=== PATIENT | female | born 1930 | race Caucasian/White ===

== ENCOUNTER 2016-08-12 10:12 | Observation (INO) | payer MEDICARE, OTHER ==
[~2016-08-12] VITALS: Ht 152.4 cm; Wt 67.7 kg
--- NOTE | ~2016-08-12 | EEP ---
Initial Pacemaker Generator Implant Report Demographics Patient Name RENÉE GARCIA Gender Female Patient Number [id number] Race Visit Number [id number] Ethnicity [employer] ID Room Number 429 Accession Number [id number] Height 165.1 cm Date of 1930 Weight 67.59 kg Age 85 year(s) BSA 1.75 m Referring Physician Sarah Johnson MD BMI 24.79 kg/m Implanting Physician King Lonnie Howard MD Date of Study 08/12/2016 Assisting Physician Performing Physician King Lonnie Howard MD The procedure was explained in detail to the patient. Risks, complications and alternative treatments were reviewed. Written consent was obtained. Medications reviewed with patient prior to procedure. Conclusions Implantable Device Summary Summary Successful Dual Chamber Pacemaker implantation. Recommendations A chest X-ray & EKG should be performed immediately and again in the AM. A wound check should be performed in 7 days. Follow up in 7 days with an [facility] provider. Complications No complications. Procedure Procedure Type Pacemaker:Initial Insertion (generator and leads), Dual Lead PM Insert A&V Leads Indications Syncope and Symptomatic Bradycardia. Procedure Description The patient was brought to the electrophysiology laboratory in a fasting state non sedated state. A baseline ECG was recorded. Informed consent was obtained in the written and verbal form after the risks and benefits were explained. The patient had no further questions and agreed to proceed. A grounding pad was placed on the patient's back. A defibrillator was configured to deliver shocks via self-adhesive anterior posterior defibrillator pads. The planned puncture-incision site(s) were shaved and prepped with ChloraPrep and draped in the usual sterile manner. Conscious sedation, supplemental oxygen, and pain control medications were delivered by a registered nurse under physician guidance. Surface ECG rhythm, blood pressure measurement, and pulse oximetry were monitored throughout the procedure. 2 % Lidocaine with bupivicaine was used in the infraclavicular area and an incision was made. Subclavian access was obtained and guidewires were placed into the SVC. Blunt dissection anterior to the Pectoralis Fascia was used to form the pacemaker pocket. Over one wire, an intravenous sheath and dilator were placed in the superior vena cava under fluoroscopic vision. Through the sheath, the ventricular lead was then placed into the right ventricular apex under fluoroscopic vision and tested. The sheath was removed. The lead was sutured to the Pectoralis fascia using non-absorbable suture. Over the other wire, an intravenous sheath and dilator were placed in to the superior vena cava under fluoroscopic vision. Through the sheath, the atrial lead was then placed in the right atrium under fluoroscopic vision and tested. The sheath was removed. The lead was sutured to the Pectoralis Fascia using non-absorbable sutures. The leads were then connected to the pulse generator and screwed tight. The pocket was irrigated with Normal Saline. The lead(s) and pulse generator were then placed into the pacemaker pocket. The incision was then closed. It was closed using 3-0 Vicryl for the deep and intermediate layer and 4-0 Vicryl for the subcuticular layer. A sterile dressing was applied. The patient tolerated the procedure well and was returned to the nursing unit in stable condition. Devices and Leads Devices + + + +--------+-------+ +--------+ !Identification!Action !Location !Device !Serial !Implant !Comments! ! ! ! !name !# !date ! ! + + + +--------+-------+ +--------+ !Old implant ! !Left ![facility]![id number]!05/02/2015! ! ! ! !Subclavicular!LOOP ! ! ! ! ! ! ! !RECORDER! ! ! ! + + + +--------+-------+ +--------+ !New implant !Implanted !Left ![employer]![id number] !08/12/2016! ! ! ! ! !MRI DR ! ! ! ! ! ! ! !L111 ! ! ! ! + + + +--------+-------+ +--------+ Leads + + +--------+ +------+ +---------+ !Identification!Action !Location!Lead name !Serial!Implant !Comments ! ! ! ! ! !# !date ! ! + + +--------+ +------+ +---------+ !New implant !Implanted !RV !PACER LEAD ![id number]!08/12/2016! ! ! ! !septum !INGEVITY ! ! ! ! ! ! ! !MRI 59 CM ! ! ! ! + + +--------+ +------+ +---------+ !New implant !Implanted !RA !PACER LEAD ![id number]!08/12/2016! ! ! ! !lateral !FINELINE II! ! ! ! ! ! ! !52CM LEAD ! ! ! ! ! ! ! !(POLY) ! ! ! ! + + +--------+ +------+ +---------+ Leads Measured and Programmed Data +--------+---------+ +---------+ +---------+ + +----- --+ !Lead !Sensing Amplitude !Threshold (V) !Pulse Width (ms) !Impendence!Current! ! !(mV) ! ! !(Ohms) !(mA) ! +--------+---------+ +---------+ +---------+ + +----- --+ ! !Measured !Programmed !Measured !Programmed !Measured !Programmed ! ! ! +--------+---------+ +---------+ +---------+ + +----- --+ !RV !4.9 !2 !0.5 !3.5 !0.5 !0.5 !985 !0.6 ! !septum ! ! ! ! ! ! ! ! ! +--------+---------+ +---------+ +---------+ + +----- --+ !RA !1.5 !0.5 !0.9 !3.5 !0.5 !0.5 !319 !2.9 ! !lateral ! ! ! ! ! ! ! ! ! +--------+---------+ +---------+ +---------+ + +----- --+ Device Programming Bradycardia Zone +-------+--------+--------+--------+ + +------+--------+ !Pacing !Mode !Lower !Upper !Paced AV !Sensed AV !PVARP !VRP (ms)! !Mode !Switch !Rate !Rate !Interval !Interval !(ms) ! ! ! ! !(ppm) !(ppm) !(ms) !(ms) ! ! ! +-------+--------+--------+--------+ + +------+--------+ !DDDR !On !60 !130 !240 !210 !320 !250 ! +-------+--------+--------+--------+ + +------+--------+ Medical History Allergies - Other:(Nitrofurantoin). Admission Data Admission Date: 08/12/2016 Admission Time: 13:06 Insurance Payors:Medicare. Hospital Status:Inpatient. Procedure Data Procedure Date:08/12/2016Start:12:50End:14:02 Fluoroscopy Time: 14:06 minutes.Fluoroscopy Dose: 424 mGy. Estimated blood loss:10 ml. Procedure Medications Order and Administration + + +---------+--------+ !Time !Medication !Dosage !Route ! + + +---------+--------+ !08/12/2016 12:27 !Ancef !2 g !I.V. ! + + +---------+--------+ 08/12/2016 12:36 !Versed !2 mg !I.V. ! + + +---------+--------+ 08/12/2016 12:36 !Fentanyl !50 mcg !I.V. ! + + +---------+--------+ !08/12/2016 12:43 !Oxygen !2 l/min !NC ! + + +---------+--------+ !08/12/2016 12:52 !Versed !1 mg !I.V. ! + + +---------+--------+ !08/12/2016 12:52 !Fentanyl !25 mcg !I.V. ! + + +---------+--------+ !08/12/2016 13:01 !Versed !1 mg !I.V. ! + + +---------+--------+ !08/12/2016 13:01 !Fentanyl !25 mcg !I.V. ! + + +---------+--------+ !08/12/2016 13:21 !Versed !1 mg !I.V. ! + + +---------+--------+ !08/12/2016 13:21 !Fentanyl !50 mcg !I.V. ! + + +---------+--------+ !08/12/2016 13:59 !Sodium Chloride !40 ml !I.V. ! + + +---------+--------+ Approach - Incision site: Left infraclavicular.The subclavian vein (stick) was cannulated.The incision was closed using 3-0 Vicryl for the deep and intermediate layers and 4-0 Vicryl for the subcuticular layer. A sterile dressing was applied. Entry Locations - Percutaneous access was performed through the left subclavian vein. A 6 Fr sheath was inserted. Post procedure the sheath was removed and the lead was sutured in place. - Percutaneous access was performed through the left subclavian vein. A 7 Fr sheath was inserted. Discharge Data Discharge Date: 08/13/2016 Signatures
[2016-08-14] MEDS ORDERED: TYLENOL DPS325 MG PO (13:07)
[2016-08-14] MEDS ORDERED: NORVASC5 MG PO (13:07)
[2016-08-14] MEDS ORDERED: LIPITOR DPS10 MG PO (13:08)
[2016-08-14] MEDS ORDERED: LOSARTAN-HCTZ1 EAC1 PO (13:08)
[2016-08-14] MEDS ORDERED: ASPIR 8181 MG PO (13:08)
[2016-08-14] MEDS ORDERED: CLONIDINE HCL0.1 MG PO (13:08)
[2016-08-14] MEDS ORDERED: OCUVITE WITH L1 EACH PO (13:09)
[2016-08-14] MEDS ORDERED: SPIRONOLACTONE25 MG PO (13:09)
[2016-08-14] MEDS ORDERED: DAILY MULTIPLE1 EAC1 PO (13:09)
[2016-08-14] MEDS ORDERED: SAW PALMETTO 1160 MG PO (13:10)
[2016-08-14] MEDS ORDERED: FIBERCON DPS625 MG PO (13:10)
[2016-08-14] MEDS ORDERED: VITAMIN D35000 UNI1 PO (13:10)
== END 2016-08-13 13:10 | disposition home or self-care (01) ==
LOC: SSS 10:12 → 4PCU 13:06
PROVIDERS: ADMIT Internal Medicine
DX: R55 Syncope and collapse (principal); R00.1 Bradycardia, unspecified; I49.8 Other specified cardiac arrhythmias; I10 Essential (primary) hypertension; E11.9 Type 2 diabetes mellitus without complications; E78.2 Mixed hyperlipidemia; Z79.899 Other long term (current) drug therapy; Z95.0 Presence of cardiac pacemaker; Z98.890 Other specified postprocedural states; Z79.82 Long term (current) use of aspirin